=== PATIENT | female | born 1930 | race Caucasian/White ===

== ENCOUNTER 2018-05-27 20:32 | Inpatient (IN) | payer OTHER ==
[~2018-05-27] VITALS: Ht 170.2 cm; Wt 79.8 kg
[2018-05-27 21:49] LABS: HEMATOCRIT 30.6 % (36.0-46.0); HEMOGLOBIN 9.7 G/DL (11.9-15.5); MCH 24.7 PG (29.0-34.0); MCHC 31.7 G/DL (30.0-36.0); MCV 78.1 FL (83-99); PLATELET COUNT 75 K/uL (156-360); RBC DIS.WIDTH-CV 14.9 % (11.8-14.6); RBC DIS.WIDTH-SD 41.7 % (39-53); RED BLOOD COUNT 3.92 M/uL (3.80-5.20); WHITE BLOOD COUNT 2.4 K/uL (4.1-10.2)
[2018-05-27 22:08] LABS: ALBUMIN 3.7 G/DL (3.2-4.8); CHLORIDE 100 MEQ/L (99-109); POTASSIUM 4.3 MEQ/L (3.7-5.4); SODIUM 133 MEQ/L (136-147); TOTAL BILIRUBIN 0.3 MG/DL (0.0-1.0)
[2018-05-27 22:14] LABS: ALKALINE PHOSPHATASE 92 IU/L (3-129); ALT (GPT) 7 IU/L (3-49); AST (GOT) 8 IU/L (2-34); CREATININE 0.8 MG/DL (0.6-1.3); GFR ESTIMATE (CALCULATED) > 59 mL/min/; GLUCOSE 391 mg/dL (70-99); TOTAL PROTEIN 5.9 G/DL (6.4-8.3); UREA NITROGEN (BUN) 16 mg/dL (9-23)
[2018-05-27 22:17] LABS: APPEARANCE SL.HAZY ((CLEAR)); BILIRUBIN NEGATIVE; BLOOD MODERATE; COLOR YELLOW ((YELLOW)); GLUCOSE (STRIP) >=500; KETONES NEGATIVE; LEUKOCYTES MODERATE; NITRITE POSITIVE; PROTEIN (STRIP) 30; SPECIFIC GRAVITY 1.023 (1.000-1.030); UROBILINOGEN 0.2 MG/DL (0.2-1.0)
[2018-05-27 22:21] LABS: TROP-I INTERPRETATION POSITIVE; TROPONIN-I 0.88 ng/mL (0.0-0.30)
[2018-05-27 22:47] LABS: CREATINE KINASE 22 IU/L (1-294)
[2018-05-27 22:51] LABS: INTER. NORMALIZED RATIO 1.5
[2018-05-27 22:54] LABS: PTT 23.9 SEC (25-37)
[2018-05-27] MEDS ORDERED: NORVASC5 MG PO (23:00)
[2018-05-27] MEDS ORDERED: ASPIRIN81 M2 PO (23:00)
[2018-05-27] MEDS ORDERED: ELIQUIS5 MG PO (23:01)
[2018-05-27] MEDS ORDERED: DOCU LIQUI50 MG/5 ML PO (23:01)
[2018-05-27] MEDS ORDERED: FEROSUL220 MG/51 PO (23:02)
[2018-05-27] MEDS ORDERED: LANTUS 10100 UNITS/ SC (23:02)
[2018-05-27 23:03] LABS: LIPASE 30 U/L (1.0-51.0)
[2018-05-27] MEDS ORDERED: ZANTAC150 MG PO (23:03)
[2018-05-27] MEDS ORDERED: SYNTHROID50 MCG PO (23:03)
[2018-05-27] MEDS ORDERED: PAXIL20 MG PO (23:03)
[2018-05-27] MEDS ORDERED: SENNA8.6 MG PO ×2 (23:04→23:07)
[2018-05-27] MEDS ORDERED: ZOCOR10 MG PO (23:04)
[2018-05-27] MEDS ORDERED: CYANOCOBAL1000 MCG/2 IM (23:05)
[2018-05-27] MEDS ORDERED: HALDOL1 MG PO (23:06)
[2018-05-27] MEDS ORDERED: TYLENOL WITH C1 EACH PO (23:06)
[2018-05-27] MEDS ORDERED: TYLENOL REGULA325 MG PO (23:06)
[2018-05-27] MEDS ORDERED: ATIVAN0.5 MG PO (23:07)
[2018-05-27 23:47] LABS: BACTERIA 1+ /HPF; EPITHELIAL CELLS 1+ /HPF; MUCUS NONE SEEN /LPF; UCUL ADDED? YES
[2018-05-28 01:45] VITALS: BP 152/61
[2018-05-28 04:43] VITALS: BP 140/55
[2018-05-28 07:35] LABS: TROP-I INTERPRETATION POSITIVE; TROPONIN-I 0.91 ng/mL (0.0-0.30)
[2018-05-28 08:00] VITALS: BP 125/58
[2018-05-28 12:00] VITALS: BP 135/60
[2018-05-28 14:32] LABS: TROP-I INTERPRETATION POSITIVE; TROPONIN-I 0.85 ng/mL (0.0-0.30)
[2018-05-28 19:30] VITALS: BP 129/69
[2018-05-28 23:10] VITALS: BP 135/82
[2018-05-29 04:50] VITALS: BP 144/71
[2018-05-29 08:47] VITALS: BP 169/73
[2018-05-29 12:45] VITALS: BP 127/57
[2018-05-29 16:58] LABS: HEMATOCRIT 23.2 % (36.0-46.0); MCH 23.8 PG (29.0-34.0); MCHC 30.2 G/DL (30.0-36.0); MCV 78.9 FL (83-99); PLATELET COUNT 68 K/uL (156-360); RBC DIS.WIDTH-CV 15.1 % (11.8-14.6); RBC DIS.WIDTH-SD 43.3 % (39-53); RED BLOOD COUNT 2.94 M/uL (3.80-5.20); WHITE BLOOD COUNT 2.4 K/uL (4.1-10.2)
[2018-05-29 17:15] LABS: CHLORIDE 107 MEQ/L (99-109); CREATININE 0.8 MG/DL (0.6-1.3); GFR ESTIMATE (CALCULATED) > 59 mL/min/; GLUCOSE 221 mg/dL (70-99); POTASSIUM 4.1 MEQ/L (3.7-5.4); SODIUM 137 MEQ/L (136-147); UREA NITROGEN (BUN) 14 mg/dL (9-23)
[2018-05-29 17:17] VITALS: BP 127/91
[2018-05-29 19:17] VITALS: BP 166/76
[2018-05-29 22:27] VITALS: BP 139/62
[2018-05-30] VITALS (11 sets, daily range): BP systolic 113–187; BP diastolic 52–89
[2018-05-30 11:31] LABS: MCH 24.4 PG (29.0-34.0); MCV 78.9 FL (83-99); PLATELET COUNT 63 K/uL (156-360); RBC DIS.WIDTH-CV 15.3 % (11.8-14.6); RBC DIS.WIDTH-SD 43.8 % (39-53); RED BLOOD COUNT 2.66 M/uL (3.80-5.20); WHITE BLOOD COUNT 2.2 K/uL (4.1-10.2)
[2018-05-30 11:33] LABS: HEMOGLOBIN 6.5 G/DL (11.9-15.5)
[2018-05-30 11:39] LABS: CHLORIDE 107 mEq/L (99-109); POTASSIUM 4.3 mEq/L (3.7-5.4); SODIUM 136 mEq/L (136-147)
[2018-05-30 11:41] LABS: GLUCOSE 232 mg/dL (70-99)
[2018-05-30 11:44] LABS: CREATININE 0.8 mg/dL (0.6-1.3); GFR ESTIMATE (CALCULATED) > 59 mL/min/
[2018-05-30 11:45] LABS: UREA NITROGEN (BUN) 11 mg/dL (9-23)
[2018-05-30 15:30] LABS: STOOL OCCULT BLD 1ST SPECIMEN POSITIVE
[2018-05-31 07:01] VITALS: BP 142/62
[2018-05-31 07:06] LABS: HEMATOCRIT 27.5 % (36.0-46.0); MCH 25.1 PG (29.0-34.0); MCHC 31.6 G/DL (30.0-36.0); MCV 79.5 FL (83-99); PLATELET COUNT 68 K/uL (156-360); RBC DIS.WIDTH-SD 43.4 % (39-53); WHITE BLOOD COUNT 2.7 K/uL (4.1-10.2)
[2018-05-31 07:10] LABS: HEMOGLOBIN 8.7 G/DL (11.9-15.5); RED BLOOD COUNT 3.46 M/uL (3.80-5.20)
[2018-05-31 07:48] LABS: CHLORIDE 109 MEQ/L (99-109); CREATININE 0.8 MG/DL (0.6-1.3); GFR ESTIMATE (CALCULATED) > 59 mL/min/; POTASSIUM 3.9 MEQ/L (3.7-5.4); SODIUM 139 MEQ/L (136-147); UREA NITROGEN (BUN) 11 mg/dL (9-23)
[2018-05-31 07:49] LABS: GLUCOSE 95 mg/dL (70-99)
[2018-05-31 11:34] VITALS: BP 129/62
[2018-05-31] MEDS ORDERED: GENTAMICIN40 MG/1 ML IM (14:58)
[2018-05-31 16:17] VITALS: BP 132/62
== END 2018-05-31 16:44 | disposition home or self-care (01) | DRG 281 ==
LOC: EME 20:32 → 4EAST 23:30 → EDOF 23:30 → ENRESERV 23:41 → 4EAST 05-28 01:21 → ENPENDDIS 05-31 → EDPENDDIS 05-31 → 4EAST 05-31 16:44
PROVIDERS: Family Medicine; Physician Assistant
PROC: 30233N1 Transfusion of Nonautologous Red Blood Cells into Peripheral Vein, Percutaneous Approach (ICD-10-PCS; principal; 2018-05-27)
DX: I21.4 Non-ST elevation (NSTEMI) myocardial infarction (principal); N39.0 Urinary tract infection, site not specified; D61.818 Other pancytopenia; D50.0 Iron deficiency anemia secondary to blood loss (chronic); K92.2 Gastrointestinal hemorrhage, unspecified; S00.93XA Contusion of unspecified part of head, initial encounter; W18.30XA Fall on same level, unspecified, initial encounter; Y92.099 Unspecified place in other non-institutional residence as the place of occurrence of the external cause; G30.9 Alzheimer's disease, unspecified; F02.80 Dementia in other diseases classified elsewhere, unspecified severity, without behavioral disturbance, psychotic disturbance, mood disturbance, and anxiety; I10 Essential (primary) hypertension; E78.5 Hyperlipidemia, unspecified; E11.9 Type 2 diabetes mellitus without complications; E03.9 Hypothyroidism, unspecified; K59.09 Other constipation; R16.1 Splenomegaly, not elsewhere classified; Z66 Do not resuscitate; Z86.711 Personal history of pulmonary embolism; Z79.01 Long term (current) use of anticoagulants; Z79.82 Long term (current) use of aspirin; Z79.4 Long term (current) use of insulin
CPT/HCPCS: 70450; 71045; 72125; 72170; 74177; 80048; 80053; 80170; 81003; 82272; 82550; 82948; 83690; 83880; 84484; 85027; 85610; 85730; 86850; 86900; 86901; 86920; 87077; 87086; 87186; 87641; 93005; 93306; 99281; 99284; J1580; J1815; J1940; J7050; P9016

== ENCOUNTER 2018-07-02 08:51 | Emergency (ER) | payer OTHER ==
[~2018-07-02] VITALS: Ht 162.6 cm; Wt 68.6 kg
[~2018-07-02 08:51] MED LIST: ASPIRIN81 M2 PO; ATIVAN0.5 MG PO; CYANOCOBAL1000 MCG/2 IM; DOCU LIQUI50 MG/5 ML PO; ELIQUIS5 MG PO; FEROSUL220 MG/51 PO; GENTAMICIN40 MG/1 ML IM; HALDOL1 MG PO; LANTUS 10100 UNITS/ SC; NORVASC5 MG PO; PAXIL20 MG PO; SENNA8.6 MG PO; SYNTHROID50 MCG PO; TYLENOL REGULA325 MG PO; TYLENOL WITH C1 EACH PO; ZANTAC150 MG PO; ZOCOR10 MG PO
[2018-07-02 11:27] VITALS: BP 106/46
== END 2018-07-02 11:38 | disposition home or self-care (01) ==
LOC: EME 08:51
DX: S10.0XXA Contusion of throat, initial encounter (principal); Y04.8XXA Assault by other bodily force, initial encounter; Y92.099 Unspecified place in other non-institutional residence as the place of occurrence of the external cause; G30.9 Alzheimer's disease, unspecified; F02.80 Dementia in other diseases classified elsewhere, unspecified severity, without behavioral disturbance, psychotic disturbance, mood disturbance, and anxiety; Z90.49 Acquired absence of other specified parts of digestive tract
CPT/HCPCS: 99281; 99284